=== PATIENT | female | born 1955 | race African-American/Black ===

== ENCOUNTER 2019-01-25 08:46 | Day surgery (SDC) | payer MEDICAID ==
[~2019-01-25] VITALS: Ht 167.6 cm; Wt 79.8 kg
[~2019-01-25 08:46] MED LIST: BALS750C6 PO
[2019-01-25] MEDS ORDERED: LACTATED RINGERS 1,000 ML IV SCH (09:00)
[2019-01-25] MEDS ORDERED: PROPOFOL 200MG/20ML VIAL IV ONE ×2 (10:58→11:44)
[2019-01-25] MEDS ORDERED: MIDAZOLAM HCL 2 MG/2 ML VIAL ONE (10:59)
[2019-01-25] MEDS ORDERED: LIDOCAINE HCL 2% 5ML SYRINGE IV ONE (10:59)
[2019-01-25] MEDS ORDERED: SIMETHICONE 40 MG/0.6 ML 30ML ONE (11:21)
[2019-01-25] MEDS ORDERED: PROPOFOL 10MG/ML 100ML 0 ML IV ONE (11:40)
[2019-01-25] MEDS ORDERED: MORPHINE SULFATE 2 MG/ML CPJ (NOT FOR IM USE) IV PRN (12:15)
[2019-01-25] MEDS ORDERED: HYDROMORPHONE HCL/PF 2MG/ML CPJ IV PRN (12:15)
[2019-01-25] MEDS ORDERED: ONDANSETRON HCL 4MG/2ML INJ IV PRN (12:15)
[2019-01-25] MEDS ORDERED: FENTANYL CITRATE/PF 50MCG/ML 2ML VIAL IV PRN (12:15)
[2019-01-25] MEDS ORDERED: MEPERIDINE HCL/PF 25MG/ML CPJ IV PRN (12:15)
== END 2019-01-25 13:30 | disposition home or self-care (01) ==
LOC: OR 08:46
PROVIDERS: ATTEND Internal Medicine Gastroenterology
DX: K63.5 Polyp of colon (principal); K63.89 Other specified diseases of intestine; K52.89 Other specified noninfective gastroenteritis and colitis; Z79.899 Other long term (current) drug therapy
CPT/HCPCS: 45380; 88305; 93005; J2704; J3490; J2250

== ENCOUNTER 2019-04-12 18:19 | Emergency (ER) | payer MEDICAID ==
[~2019-04-12] VITALS: Ht 167.6 cm; Wt 84.0 kg
[2019-04-12 22:40] VITALS: BP 173/74
== END 2019-04-12 22:42 | disposition home or self-care (01) ==
LOC: ER 18:19
DX: M25.474 Effusion, right foot (principal); W22.8XXA Striking against or struck by other objects, initial encounter; Y93.9 Activity, unspecified; Y92.9 Unspecified place or not applicable
CPT/HCPCS: 73630; 99283